=== PATIENT | female | born 2000 | race American Indian/Alaskan Native ===

== ENCOUNTER 2021-10-21 11:52 | Emergency (ER) | payer OTHER ==
[~2021-10-21] VITALS: Ht 165.1 cm; Wt 65.9 kg
[2021-10-21 12:11] VITALS: TEMP 99.1
[2021-10-21] MEDS ORDERED: CLEOCIN HC150 MG/CAP PO (12:27)
[2021-10-21] MEDS ORDERED: CLEOCIN HCL300 MG PO (12:27)
[2021-10-21 13:37] VITALS: BP 99/56; PULSE 78
== END 2021-10-21 13:43 | disposition home or self-care (01) ==
LOC: COL.ER 11:52
DX: J36 Peritonsillar abscess (principal)
CPT/HCPCS: J1100; J2405; J7030